=== PATIENT | female | born 1995 | race Caucasian/White ===

== ENCOUNTER 2018-03-30 10:22 | Observation (INO) | payer OTHER ==
--- NOTE | 2018-03-30 10:54 | EDPHY ---
H & P Time Seen by Provider: 03/30/18 10:52 HPI/ROS: CHIEF COMPLAINT: Ankle injury HISTORY OF PRESENT ILLNESS: Fell on the ice about 9:50 a.m., had breakfast with exit about 9:00 a.m.. Presents to the ED with severe right ankle pain which happened just after the fall. Not associated with laceration or weakness or numbness in the foot. Pain mild at rest but moderate to severe with any movement or weight-bearing. Started just after the fall. REVIEW OF SYSTEMS: Eye: no change in vision ENT: no sore throat Cardiac: No chest pain Pulmonary: No cough or recent upper respiratory infection Abdomen: Nausea but no vomiting or abdominal pain Musculoskeletal: HPI Skin: No laceration Neuro: No weakness or numbness in the foot Constitutional: no fever : no urinary symptoms A comprehensive 10 point review of systems is otherwise negative aside from elements mentioned in the history of present illness. PAST MEDICAL HISTORY: Negative Social history: Here with her father General Appearance: Alert and conversant, cooperative. Eyes: No scleral icterus. ENT, Mouth: Normal mucous membranes. Respiratory: Normal respiratory effort, breath sounds equal, lungs are clear to auscultation. Cardiovascular: Regular rate and rhythm. Gastrointestinal: Abdomen is soft and non tender. Neurological: Alert, face symmetric, normal motor and sensory in extremities. Skin: No laceration or abrasion over the ankle. Musculoskeletal: No spinal tenderness. Normal right knee and proximal tib- fib. She has swelling and tenderness around the ankle and her foot is normal. Normal motor sensory and dorsalis pedis pulse in that foot. Psychiatric: Not agitated. Emergency Department course/MDM: X-ray personally interpreted as bimalleolar fracture with syndesmotic disruption. Discussed with Donald [id number]; keep NPO. Admit to him and he will plan to take her to the operating room this evening when her NPO status allows. Unlikely to have vascular disruption, open fracture, compartment syndrome. Procedure: Splint placement. A right lower leg Ortho Glass splint was applied. After application of the splint I returned and re-examined the patient. The splint was adequately immobilizing the joint and distal to the splint the patient's circulation and sensation was intact. Smoking Status: Never smoked Constitutional: Initial Vital Signs Temperature (C) 36.6 C 03/30/18 10:29 Heart Rate 58 L 03/30/18 10:29 Respiratory Rate 17 03/30/18 10:29 Blood Pressure 98/54 L 03/30/18 10:29 O2 Sat (%) 98 03/30/18 10:29 O2 Delivery Mode Room Air Allergies/Adverse Reactions: No Known Allergies Allergy (Verified 03/30/18 11:45) Home Medications: Medication Instructions Recorded Etonogestrel [Nexplanon] 68 mg [id number] 03/30/18 Lact Cmb2/S.thermophl/Bif Cmb1 1 each PO DAILY 03/30/18 [Vsl#3 Cap (*)] Polyethylene Glycol 3350 [Miralax 17 gm PO DAILY 03/30/18 17 gm (*)] Spironolactone 03/30/18 Medical Decision Making - Diagnostics Imaging Results: Imaging Impressions Ankle X-Ray 03/30/18 10:32 Impression: Displaced and angulated unstable bimalleolar fracture fragment with disruption of the syndesmosis. Imaging: I viewed and interpreted images myself - Data Points Medications Given: Discontinued Medications Hydromorphone HCl (Dilaudid) 1 mg IVP EDNOW ONE Stop: 03/30/18 11:09 Last Admin: 03/30/18 11:10 Dose: 1 mg Sodium Chloride (Ns) 1,000 mls @ 0 mls/hr IV EDNOW ONE; Wide Open PRN Reason: Protocol Stop: 03/30/18 11:05 Last Admin: 03/30/18 11:09 Dose: 1,000 mls Ondansetron HCl (Zofran) 4 mg IVP EDNOW ONE Stop: 03/30/18 11:09 Last Admin: 03/30/18 11:10 Dose: 4 mg Departure - Departure Disposition: [facility] Acute Clinical Impression: Closed bimalleolar fracture of right ankle Qualifiers: Encounter type: initial encounter Qualified Code(s): S82.841A - Displaced bimalleolar fracture of right lower leg, initial encounter for closed fracture Condition: Good
[2018-03-30] MEDS ORDERED: HYDROmorphONE/DILAUDID 2 MG/ML INJ ONE (10:55)
[2018-03-30] MEDS ORDERED: ONDANSETRON 4 MG/2 ML VIAL ONE (10:58)
[2018-03-30] MEDS ORDERED: NS 1,000 ML IV ONE (11:04)
[2018-03-30] MEDS ORDERED: HYDROmorphONE/DILAUDID 1 MG/ML INJ IVP ONE (11:08)
[2018-03-30] MEDS ORDERED: ONDANSETRON 4 MG/2 ML VIAL IVP ONE (11:08)
[2018-03-30 11:27] LABS: PLATELET COUNT 235 10^3/uL (150-400)
[2018-03-30 12:13] VITALS: BP 103/61
[2018-03-30] MEDS ORDERED: oxyCODONE IR 5 MG TAB PO PRN (12:55)
[2018-03-30] MEDS ORDERED: HYDROmorphONE/DILAUDID 1 MG/ML INJ IVP PRN ×2 (12:55→14:30)
--- NOTE | 2018-03-30 13:23 | GCON ---
CHIEF COMPLAINT: Right ankle fracture. HISTORY OF PRESENT ILLNESS: She slipped on the ice at about 9:50 a.m. this morning and injured her r ight ankle. She had immediate pain and inability to walk. Seen in the ER. She complains of no othe r problems. She describes severe pain in her right ankle. REVIEW OF SYSTEMS: 10-point review of systems was performed and otherwise negative. PAST MEDICAL HISTORY: Negative. PAST SURGICAL HISTORY: Oral surgery. ALLERGIES: No known drug allergies. SOCIAL HISTORY: She lives with her father. She denies significant alcohol, and she does not smoke. FAMILY HISTORY: Reviewed and noncontributory. PHYSICAL EXAM: GENERAL: She is alert, oriented, appropriate. She is in no acute distress. HEAD: Atraumatic. EYES: Equal and reactive. MOUTH: Moist mucous membranes. NECK: Supple. CARDIOVASCU LAR: She has regular rate and rhythm. RESPIRATORY: Shows good inspiratory effort. ABDOMEN: Soft. EXTREMITIES: Her upper extremities, she moves well with no abnormalities. Good pulse and sensatio n. Skin is intact. Right lower extremity is in a splint. She can feel sensation in her toes. Her knee is atraumatic and mobile. Her left lower extremity, she moves well with no areas of tenderness and good motor control. IMAGING: Radiographs show a bimalleolar ankle fracture with significant subluxation and near disloca tion of the talus. ASSESSMENT: Right ankle fracture dislocation. PLAN: I discussed with her the nature of her condition and treatment options. Given her near disloc ation of the talus and instability of this, we will elect for surgery today. She last ate at 9:30, a nd we will proceed 8 hours after this. We discussed risks of nerve injury, continued pain, need for hardware removal, arthritis, wound complications, need for syndesmotic fixation, need for other surge huber, and she has elected to proceed. Informed consent was obtained, and all questions were answered . She was marked preoperatively. /[id number]/MODL
--- NOTE | 2018-03-30 15:43 | ASMTCMCOM ---
CM Note CM Note Notes: [facility] called and want pt transferred to [facility]. CHRISTI Mc and KD Saldivar complete EMTALA and obtain MD signature. The [facility] transfer center arranged for pt to admit to room 5232 with a BLS pickup of approx [phone]. KD Saldivar to call report to [phone]. Copy of chart and images went with pt. Date Signed: 03/30/2018 03:42 PM Electronically Signed By:FABIAN Hdz
--- NOTE | 2018-03-30 15:44 | GDS ---
CHIEF COMPLAINT: Right ankle fracture. Hospital course: She was at the hospital and admitted by me with a right ankle fracture for surgery later today at 5:30. I got a call from her insurance company of [employer] and the [facility] physician requesting transfer of care for insurance reasons. They felt capable of taking care of the fracture, and we agreed this request. She is discharged to their care for further treatment of the right ankle fracture. /[id number]/MODL MTDD
== END 2018-03-30 16:02 | disposition short-term general hospital (02) ==
LOC: F3N 12:02
PROVIDERS: ADMIT Orthopaedic Surgery; ATTEND Orthopaedic Surgery
PROC: 2W3QX1Z Immobilization of Right Lower Leg using Splint (ICD-10-PCS; principal; 2018-03-30)
DX: S82.841A Displaced bimalleolar fracture of right lower leg, initial encounter for closed fracture (principal); W00.0XXA Fall on same level due to ice and snow, initial encounter
CPT/HCPCS: 29515; 73610; G0378; 96374; J1170; J2270; J2405